=== PATIENT | male | born 2000 | race Caucasian/White ===

== ENCOUNTER 2022-06-18 13:19 | Emergency (ER) | payer MEDICAID, OTHER ==
[~2022-06-18] VITALS: Ht 172.7 cm; Wt 74.4 kg
[2022-06-18 13:39] VITALS: BP 140/94
--- NOTE | 2022-06-18 13:42 | NUR ---
BIBS FOR RIGHT LOWER LEG LAC. NO BLEEDING. RATES PAIN 7/10. WILL CONTINUE TO MONITOR THE PATIENT.
[2022-06-18] MEDS ORDERED: LIDOCAINE 1% INJ 50 ML MDV IJ ONE (13:57)
--- NOTE | 2022-06-18 16:04 | NUR ---
Patient discharged to home in stable condition. Written and verbal after care instructions given. Patient verbalizes understanding of instruction.
== END 2022-06-18 16:04 | disposition home or self-care (01) ==
LOC: ER 13:30
DX: S81.811A Laceration without foreign body, right lower leg, initial encounter (principal); W45.8XXA Other foreign body or object entering through skin, initial encounter; Y93.89 Activity, other specified; Y92.89 Other specified places as the place of occurrence of the external cause; Y99.8 Other external cause status
CPT/HCPCS: 99283; 12002; J3490

== ENCOUNTER 2022-07-01 12:27 | Emergency (ER) | payer MEDICAID, OTHER ==
[~2022-07-01] VITALS: Ht 180.3 cm; Wt 104.3 kg
--- NOTE | 2022-07-01 12:59 | NUR ---
VISIT FOR SUTURE REMOVAL TO E, LAC REPAIR 06/18/22
[2022-07-01 13:20] VITALS: BP 138/88
== END 2022-07-01 13:23 | disposition home or self-care (01) ==
LOC: ER 12:45
DX: Z48.02 Encounter for removal of sutures (principal); Z53.21 Procedure and treatment not carried out due to patient leaving prior to being seen by health care provider

== ENCOUNTER 2022-08-05 12:27 | Emergency (ER) | payer MEDICAID, OTHER ==
[~2022-08-05] VITALS: Ht 180.3 cm; Wt 108.9 kg
[2022-08-05 12:38] VITALS: BP 170/82
[2022-08-05] MEDS ORDERED: AMOXICILLIN TRIHYDRATE 500 MG CAPSULE PO ONE (13:00)
[2022-08-05] MEDS ORDERED: IBUPROFEN 400 MG TABLET PO ONE (13:00)
[2022-08-05] MEDS ORDERED: AMOX500C2 PO (13:05)
[2022-08-05] MEDS ORDERED: AMOXICILLIN TRIHYDRATE 250 MG CAPSULE ONE (13:10)
[2022-08-05] MEDS ORDERED: IBUPROFEN 400 MG TABLET ONE (13:10)
== END 2022-08-05 13:14 | disposition home or self-care (01) ==
LOC: ER 12:35
DX: J02.0 Streptococcal pharyngitis (principal)